=== PATIENT | male | born 1995 | race Hispanic/Latino ===

== ENCOUNTER 2023-04-25 22:10 | Inpatient (IN) | payer OTHER, SELFPAY ==
[~2023-04-25 22:10] MED LIST: Iopamidol-370 76% 500 ML MDV (1 ML CHARGE) ONE
[2023-04-25] MEDS ORDERED: Boostrix 0.5 ML (Tdap) VIAL (>/=7 yrs of age) ONE (22:36)
[2023-04-25] MEDS ORDERED: Morphine 4 MG/ML VIAL ONE ×2 (22:36→22:53)
[2023-04-25 22:39] LABS: Hematocrit 42.5 % (42.0-52.0); Hemoglobin 14.5 g/dL (14.0-18.0); Manual Diff?? YES; Mean Corpuscular HGB CONC 34.1 g/dL (32.0-36.0); Mean Corpuscular Hemoglobin 30.3 pg (27.0-31.0); Mean Corpuscular Volume 88.9 fl (78.0-98.0); Mean Platelet Volume 11.6 fL (7.4-10.4); Platelet Count 227 10x3/uL (130-400); RBC Distribution Width 12.6 % (11.5-14.5); Red Blood Cell (RBC) Count 4.78 mill/uL (4.70-6.10); White Blood Cell (WBC) Count 16.6 10x3/uL (4.8-10.8)
[2023-04-25 22:44] LABS: Delete Auto Diff?? YES
[2023-04-25 23:02] LABS: ALT (SGPT) 53 U/L (8-55); AST (SGOT) 52 U/L (5-34); Albumin 4.1 g/dL (3.5-5.0); Alkaline Phosphatase 60 U/L (40-110); Anion Gap 17 mmol/L (10-20); BUN (Urea Nitrogen) 13 mg/dL (8.9-20.6); Bilirubin, Total 0.3 mg/dL (0.2-1.2); Calc. Creatinine Clearance 0 mL/min (70-130); Calcium 8.5 mg/dL (7.8-10.44); Carbon Dioxide 19 mmol/L (22-29); Chloride 109 mmol/L (98-107); Estimated GFR 122; Globulin 3.2 g/dL (2.4-3.5); Glucose 107 mg/dL (70-105); Potassium 3.6 mmol/L (3.5-5.1); Protein, Total 7.3 g/dL (6.0-8.3); Sodium 141 mmol/L (136-145)
[2023-04-25] MEDS ORDERED: CEFAZOLIN 1 GM VIAL ONE (23:15)
[2023-04-25 23:16] LABS: Band 7 % (5-11); CellaVision Operator ID LAB.MJL; Lymphocytes 12 % (21-51); Metamyelocyte 1 % (0-0); Monocytes 9 % (0-10); Neutrophil 65 % (42-75); Platelet Adequacy Comment Platelets Normal; RBC Morphology Within Normal Limits; Reactive Lymphocytes 5 % (0-10); Total Cell Count 100
[2023-04-25] MEDS ORDERED: Sodium Chloride 0.9% 100 ML ONE (23:16)
[2023-04-25] MEDS ORDERED: SUCCINYLCHOLINE/SOD CL,ISO/PF 200 MG/10 ML SYRINGE FS ONE (23:28)
[2023-04-25] MEDS ORDERED: Lidocaine 2% PF 5 ML VIAL ONE (23:28)
[2023-04-25] MEDS ORDERED: PROPOFOL 20 ML ONE (23:28)
[2023-04-25] MEDS ORDERED: Rocuronium Bromide 10 MG/ML (10ML VIAL) ONE (23:28)
[2023-04-25] MEDS ORDERED: Ondansetron PF 4 MG/2 ML Vial IVP PRN (23:55)
[2023-04-25] MEDS ORDERED: Ipratropium/Albuterol 3 ML NEB NEB PRN (23:55)
[2023-04-25] MEDS ORDERED: TETANUS, DIPHTHERIA TOX,ADULT (TDVAX) 0.5 ML VIAL IM ONE (23:55)
[2023-04-25] MEDS ORDERED: traMADol HCl 50 MG TAB PO PRN (23:57)
[2023-04-26] MEDS ORDERED: Ketorolac Tromethamine 30 MG/ML VIAL IVP PRN (00:10)
[2023-04-26] MEDS ORDERED: Ondansetron HCl/PF 4 MG/2 ML Vial IVP PRN (00:10)
[2023-04-26] MEDS ORDERED: Promethazine HCl 25 MG/ML VIAL IM PRN (00:10)
[2023-04-26] MEDS ORDERED: Meperidine HCl/PF 25 MG/ML VIAL SLOW IVP PRN (00:10)
[2023-04-26] MEDS ORDERED: Morphine 4 MG/ML VIAL ONE (00:28)
[2023-04-26] MEDS ORDERED: Fentanyl 250 MCG/5 ML VIAL ONE (00:34)
[2023-04-26] MEDS ORDERED: Ondansetron PF 4 MG/2 ML Vial ONE (01:20)
[2023-04-26] MEDS ORDERED: CEFAZOLIN 1 GM VIAL ONE (01:33)
[2023-04-26] MEDS ORDERED: HYDROmorphone 2 MG/ML VIAL ONE (02:34)
[2023-04-26] MEDS ORDERED: SUGAMMADEX SODIUM 200 MG/2 ML VIAL ONE (02:36)
[2023-04-26] MEDS ORDERED: fentaNYL 50 mcg/mL 1 mL Vial ONE ×4 (03:37→04:56)
[2023-04-26] MEDS ORDERED: cefTRIAXone (ROCEPHIN) 2 GM VIAL ONE (03:45)
[2023-04-26] MEDS ORDERED: Sodium Chloride 0.9% 100 ML ONE (03:45)
[2023-04-26] MEDS ORDERED: Ketorolac Tromethamine 30 MG (1 mL) VIAL ONE (04:02)
[2023-04-26] MEDS ORDERED: Labetalol HCl 100 MG/20 ML VIAL ONE (04:41)
[2023-04-26] MEDS: cefTRIAXone\\ROCEPHIN 2 GM in Sodium Chloride 0.9% 100 ML IVPB SCH (05:28)
[2023-04-26] MEDS: Acetaminophen 500 MG TAB PO SCH ×5 (05:28→23:56)
[2023-04-26] MEDS: traMADol HCl 50 MG TAB PO SCH ×5 (05:28→23:58)
[2023-04-26] MEDS: Sodium Chloride 0.9% 1,000 ML IV SCH ×2 (05:29→05:59)
[2023-04-26] MEDS: Morphine 2 MG/ML VIAL SLOW IVP PRN ×2 (06:02→07:59)
[2023-04-26 06:27] VITALS: BMI 36.1
[2023-04-26 07:02] LABS: #Monocytes 0.8 thou/uL (0.11-0.59); #Neutrophils 10.3 thou/uL (1.40-6.50); %Basophils 0.3 % (0.0-1.0); %Lymphocytes 7.1 % (21.0-51.0); %Monocytes 6.3 % (0.0-10.0); %Neutrophils 85.9 % (42.0-75.0); Hematocrit 38.3 % (42.0-52.0); Hemoglobin 12.8 g/dL (14.0-18.0); Mean Corpuscular HGB CONC 33.4 g/dL (32.0-36.0); Mean Corpuscular Hemoglobin 29.7 pg (27.0-31.0); Mean Corpuscular Volume 88.9 fl (78.0-98.0); Mean Platelet Volume 11.7 fL (7.4-10.4); Platelet Count 190 10x3/uL (130-400); RBC Distribution Width 12.9 % (11.5-14.5); Red Blood Cell (RBC) Count 4.31 mill/uL (4.70-6.10)
[2023-04-26 07:22] LABS: INR-International Normal Ratio 1.1; PTT 26.6 sec (22.9-36.1); Prothrombin Time 14.9 sec (12.0-14.7)
[2023-04-26 07:28] LABS: Anion Gap 15 mmol/L (10-20); BUN (Urea Nitrogen) 11 mg/dL (8.9-20.6); Calc. Creatinine Clearance 218 mL/min (70-130); Calcium 8.1 mg/dL (7.8-10.44); Carbon Dioxide 21 mmol/L (22-29); Chloride 105 mmol/L (98-107); Estimated GFR 126; Glucose 144 mg/dL (70-105); Potassium 3.8 mmol/L (3.5-5.1); Sodium 137 mmol/L (136-145)
[2023-04-26] MEDS: Famotidine/PF 20 mg/2ml Vial SLOW IVP SCH ×2 (09:55→20:56)
[2023-04-26] MEDS: Polyethylene Glycol 3350 17 GM Packet PO SCH (09:56)
[2023-04-26] MEDS: Senokot S 8.6-50 MG TAB PO SCH ×2 (09:56→20:58)
[2023-04-26] MEDS: Bacitracin 1 PK TOP SCH ×3 (12:31→20:59)
[2023-04-26] MEDS: Cyclobenzaprine 10 MG TAB PO PRN (21:09)
[2023-04-27] MEDS: cefTRIAXone\\ROCEPHIN 2 GM in Sodium Chloride 0.9% 100 ML IVPB SCH (03:11)
[2023-04-27] MEDS: Morphine 2 MG/ML VIAL SLOW IVP PRN (03:27)
[2023-04-27] MEDS: Acetaminophen 500 MG TAB PO SCH (06:02)
[2023-04-27] MEDS: traMADol HCl 50 MG TAB PO SCH ×4 (06:02→23:49)
[2023-04-27 07:42] LABS: Hemoglobin 10.6 g/dL (14.0-18.0)
[2023-04-27] MEDS: Bacitracin 1 PK TOP SCH ×3 (10:41→20:39)
[2023-04-27] MEDS: Senokot S 8.6-50 MG TAB PO SCH ×2 (10:41→20:36)
[2023-04-27] MEDS: Famotidine/PF 20 mg/2ml Vial SLOW IVP SCH ×2 (10:41→20:37)
[2023-04-27] MEDS: Enoxaparin 40 MG (0.4 mL) SYRINGE SC SCH (10:41)
[2023-04-27] MEDS: Polyethylene Glycol 3350 17 GM Packet PO SCH (10:41)
[2023-04-27] MEDS: Ibuprofen 600 MG TAB PO SCH ×3 (10:42→23:51)
[2023-04-27] MEDS ORDERED: HYDROcodone/Acetaminophen 5/325 mg Tablet PO PRN (10:53)
[2023-04-27] MEDS: Acetaminophen 325 MG TAB PO SCH ×3 (13:50→23:48)
[2023-04-27] MEDS: Cyclobenzaprine 10 MG TAB PO PRN (20:46)
[2023-04-28] MEDS: Ibuprofen 600 MG TAB PO SCH ×4 (05:25→21:09)
[2023-04-28] MEDS: Acetaminophen 325 MG TAB PO SCH ×4 (05:26→23:32)
[2023-04-28] MEDS: traMADol HCl 50 MG TAB PO SCH ×4 (05:27→23:31)
[2023-04-28] MEDS: Bacitracin 1 PK TOP SCH ×3 (09:53→21:10)
[2023-04-28] MEDS: Polyethylene Glycol 3350 17 GM Packet PO SCH (09:53)
[2023-04-28] MEDS: Famotidine/PF 20 mg/2ml Vial SLOW IVP SCH ×2 (09:53→21:09)
[2023-04-28] MEDS: Senokot S 8.6-50 MG TAB PO SCH ×2 (09:53→21:10)
[2023-04-28] MEDS: Enoxaparin 40 MG (0.4 mL) SYRINGE SC SCH (09:53)
[2023-04-28] MEDS: HYDROcodone/Acetaminophen 5/325 mg Tablet PO PRN ×2 (12:21→21:08)
[2023-04-28] MEDS ORDERED: Ketorolac Tromethamine 30 MG (1 mL) VIAL IVP SCH (12:30)
[2023-04-28] MEDS ORDERED: fentaNYL 50 mcg/mL 1 mL Vial SLOW IVP SCH (13:00)
[2023-04-29 04:59] LABS: #Eosinphils 0.2 thou/uL (0.0-0.7); #Monocytes 0.4 thou/uL (0.11-0.59); #Neutrophils 4.1 thou/uL (1.40-6.50); %Basophils 0.3 % (0.0-1.0); %Lymphocytes 21.2 % (21.0-51.0); %Monocytes 7.1 % (0.0-10.0); %Neutrophils 66.9 % (42.0-75.0); Hematocrit 32.6 % (42.0-52.0); Hemoglobin 11.1 g/dL (14.0-18.0); Mean Corpuscular Hemoglobin 30.1 pg (27.0-31.0); Mean Corpuscular Volume 88.3 fl (78.0-98.0); Mean Platelet Volume 11.4 fL (7.4-10.4); Platelet Count 188 10x3/uL (130-400); RBC Distribution Width 12.8 % (11.5-14.5); Red Blood Cell (RBC) Count 3.69 mill/uL (4.70-6.10); White Blood Cell (WBC) Count 6.1 10x3/uL (4.8-10.8)
[2023-04-29] MEDS: Ibuprofen 600 MG TAB PO SCH ×4 (06:47→21:04)
[2023-04-29] MEDS: Acetaminophen 325 MG TAB PO SCH ×4 (06:58→23:13)
[2023-04-29] MEDS: traMADol HCl 50 MG TAB PO SCH ×4 (06:59→23:13)
[2023-04-29] MEDS: Senokot S 8.6-50 MG TAB PO SCH ×2 (09:09→21:04)
[2023-04-29] MEDS: Polyethylene Glycol 3350 17 GM Packet PO SCH (09:10)
[2023-04-29] MEDS: Enoxaparin 40 MG (0.4 mL) SYRINGE SC SCH (09:10)
[2023-04-29] MEDS: Famotidine 20 MG TAB PO SCH ×2 (09:10→21:04)
[2023-04-29] MEDS: Bacitracin 1 PK TOP SCH ×4 (09:10→21:06)
[2023-04-29] MEDS: HYDROcodone/Acetaminophen 5/325 mg Tablet PO PRN (21:04)
[2023-04-30] MEDS: Ibuprofen 600 MG TAB PO SCH ×4 (05:07→21:14)
[2023-04-30] MEDS: traMADol HCl 50 MG TAB PO SCH ×4 (05:08→23:03)
[2023-04-30] MEDS: Acetaminophen 325 MG TAB PO SCH ×4 (05:08→23:02)
[2023-04-30 05:30] LABS: #Eosinphils 0.3 thou/uL (0.0-0.7); #Monocytes 0.3 thou/uL (0.11-0.59); #Neutrophils 2.6 thou/uL (1.40-6.50); %Basophils 0.2 % (0.0-1.0); %Eosinophils 5.9 % (0.0-10.0); %Lymphocytes 30.6 % (21.0-51.0); %Neutrophils 55.9 % (42.0-75.0); Hematocrit 31.7 % (42.0-52.0); Hemoglobin 10.8 g/dL (14.0-18.0); Mean Corpuscular HGB CONC 34.1 g/dL (32.0-36.0); Mean Corpuscular Hemoglobin 30.3 pg (27.0-31.0); Mean Corpuscular Volume 88.8 fl (78.0-98.0); Mean Platelet Volume 10.5 fL (7.4-10.4); Platelet Count 213 10x3/uL (130-400); Red Blood Cell (RBC) Count 3.57 mill/uL (4.70-6.10); White Blood Cell (WBC) Count 4.6 10x3/uL (4.8-10.8)
[2023-04-30 05:55] LABS: Anion Gap 13 mmol/L (10-20); BUN (Urea Nitrogen) 14 mg/dL (8.9-20.6); Calc. Creatinine Clearance 233 mL/min (70-130); Carbon Dioxide 25 mmol/L (22-29); Chloride 105 mmol/L (98-107); Estimated GFR 129; Glucose 101 mg/dL (70-105); Potassium 3.7 mmol/L (3.5-5.1); Sodium 139 mmol/L (136-145)
[2023-04-30] MEDS: Enoxaparin 40 MG (0.4 mL) SYRINGE SC SCH (09:28)
[2023-04-30] MEDS: Polyethylene Glycol 3350 17 GM Packet PO SCH (09:28)
[2023-04-30] MEDS: Senokot S 8.6-50 MG TAB PO SCH ×2 (09:28→21:12)
[2023-04-30] MEDS: Bacitracin 1 PK TOP SCH ×3 (09:29→21:15)
[2023-04-30] MEDS: Famotidine 20 MG TAB PO SCH ×2 (09:29→21:14)
[2023-04-30] MEDS ORDERED: Lactulose 20 GM (30 mL) UDCUP PO SCH (10:00)
[2023-04-30] MEDS ORDERED: LevoFLOXacin 500 mg/D5W 500 MG in Premix 1 BAG IVPB SCH (15:00)
[2023-05-01] MEDS: Ibuprofen 600 MG TAB PO SCH ×3 (05:23→17:14)
[2023-05-01] MEDS: Acetaminophen 325 MG TAB PO SCH ×3 (05:24→18:03)
[2023-05-01] MEDS: traMADol HCl 50 MG TAB PO SCH ×3 (05:24→18:04)
[2023-05-01] MEDS: Enoxaparin 40 MG (0.4 mL) SYRINGE SC SCH (09:47)
[2023-05-01] MEDS: Senokot S 8.6-50 MG TAB PO SCH (09:47)
[2023-05-01] MEDS: Bacitracin 1 PK TOP SCH ×2 (09:47→16:00)
[2023-05-01] MEDS: Famotidine 20 MG TAB PO SCH (09:47)
[2023-05-01] MEDS: Polyethylene Glycol 3350 17 GM Packet PO SCH (09:50)
[2023-05-01 16:36] VITALS: BP 142/84; TEMP 98
[2023-05-01] MEDS ORDERED: Ciprofloxacin 500 MG TAB PO SCH (20:00)
== END 2023-05-01 18:50 | disposition home or self-care (01) | DRG 503 ==
LOC: ERS 22:10 → SURG A 04-26 05:20
PROVIDERS: ADMIT Surgery; ATTEND Surgery
PROC: 0QSJXZZ Reposition Right Fibula, External Approach (ICD-10-PCS; principal; 2023-04-26)
PROC: 0QHL05Z Insertion of External Fixation Device into Right Tarsal, Open Approach (ICD-10-PCS; 2023-04-26)
PROC: 0JQQ3ZZ Repair Right Foot Subcutaneous Tissue and Fascia, Percutaneous Approach (ICD-10-PCS; 2023-04-26)
DX: S82.891B Other fracture of right lower leg, initial encounter for open fracture type I or II (principal); S82.831B Other fracture of upper and lower end of right fibula, initial encounter for open fracture type I or II; S92.101B Unspecified fracture of right talus, initial encounter for open fracture; S32.018A Other fracture of first lumbar vertebra, initial encounter for closed fracture; S32.028A Other fracture of second lumbar vertebra, initial encounter for closed fracture; R91.1 Solitary pulmonary nodule; V63.5XXA Driver of heavy transport vehicle injured in collision with car, pick-up truck or van in traffic accident, initial encounter; Y92.89 Other specified places as the place of occurrence of the external cause
CPT/HCPCS: 27840; 36415; 70450; 71260; 72125; 74177; 80048; 80053; 85014; 85018; 85025; 85610; 85730; 90471; 90715; 96374; 96376; C1713; G0390; J0690; J0696; J1170; J1650; J1885; J1956; J2001; J2270; J2272; J2405; J2704; J3010; J3490; J7050; Q9967; S0028